=== PATIENT | female | born 2000 | race African-American/Black ===

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

== ENCOUNTER 2022-05-29 17:03 | Outpatient (CLI) | payer OTHER ==
[2022-05-29] MEDS ORDERED: LACTATED RINGERS 1,000 ML IV SCH (17:45)
[2022-05-29 19:31] VITALS: BP 116/84; PULSE 98; RESP 18; TEMP 96.8
--- NOTE | 2022-06-01 07:35 | P.MSEPDOC ---
Presenting Problems - Arrival Data Date of Arrival on Unit: 05/29/22 Time of Arrival on Unit: 17:03 Mode of Transport: Ambulatory - Complaint OB-Reason for Admission/Chief Complaint: Possible Onset of Labor Comment: contractions that got worse 1 hour ago Medical History - Information : 1 Para: 0 Term: 0 : 0 Abortions: Spontaneous or Elective: 0 Number of Living Children: 0 - Gestational Age Gestational Age by RATNA (wks/days): 35 Weeks and 3 Days Review of Systems - Review of Systems Constitutional: No problems Breast: No problems ENT: No problems Cardiovascular: No problems Respiratory: No problems Gastrointestinal: No problems Genitourinary: No problems Musculoskeletal: No problems Neurological: No problems Skin: No problems Vital Signs - Temperature Temperature: 96.8 F Temperature Source: Temporal Artery Scan - Pulse Right Pulse Oximetery Pulse Rate: 98 Pulse Assessment Method: Pulse Oximetry - Respirations Respiratory Rate: 18 Oxygen Delivery Method: Room Air O2 Sat by Pulse Oximetry: 99 - Blood Pressure Right Arm Blood Pressure: 116/84 Blood Pressure Mean: 94 Blood Pressure Source: Automatic Cuff Medical Screen Scoring - Cervical Exam Dilation (cm): 1 Effacement (%): 80 Station: -2 - Uterine Contractions Frequency From (mins): 2 Frequency To (mins): 7 Duration From (seconds): 50 Duration To (seconds): 60 Intensity: Moderate Resting: Soft to palpation - Assessment - Baby A Baseline FHR: 130 Heart Rate - NICHD Category: Category I (Normal) NST: Reactive Physician Notification - Physician Notified Physician Notified Date: 05/29/22 Physician Notified Time: 17:26 Physician: Barbara Meyers New Order Received: Yes Maternal Triage Index - Maternal Triage Index Presenting for scheduled procedure w/no complaint: No - Stat/Priority 1 Stat Priority 1: No - Urgent/Priority 2 Urgent Priority 2: No - Prompt/Priority 3 Prompt Priority 3: Yes Criteria Met for Priority 3: Pt arrives with c/o early labor signs 35 3/7 weeks gestation Disposition - Disposition OB Disposition: Discharge to home Discharge Date: 05/29/22 Discharge Time: 18:35 I agree with the RN Medical Screening Exam: Yes Case reviewed; plan agreed upon as documented in EMR&OBIX.: Yes Diagnosis: FALSE LABOR BEFORE 37 COMPLETED WEEKS OF GEST, THIRD TRI
== END 2022-05-29 18:35 | disposition home or self-care (01) ==
LOC: FBPOP 17:03
PROVIDERS: ATTEND Obstetrics & Gynecology
DX: O47.03 False labor before 37 completed weeks of gestation, third trimester (principal); Z3A.35 35 weeks gestation of pregnancy
CPT/HCPCS: 59025; 96365; G0463; 99213

== ENCOUNTER 2022-06-13 09:39 | Inpatient (IN) | payer OTHER ==
[2022-06-13] MEDS ORDERED: TERBUTALINE 1 MG/ML VIAL SQ PRN (10:09)
[2022-06-13] MEDS ORDERED: LIDOCAINE 0.5% (PF) 5 MG/ML (50 ML SDV) SQ PRN (10:09)
[2022-06-13] MEDS ORDERED: METHYLERGONOVINE 0.2 MG/ML 1 ML AMP IM PRN (10:09)
[2022-06-13] MEDS ORDERED: CARBOPROST TROMETHAMINE 250 MCG/ML 1 ML AMP IM PRN (10:09)
[2022-06-13] MEDS ORDERED: OXYTOCIN 10 UNIT/ML 1 ML VIAL IM PRN (10:09)
[2022-06-13] MEDS ORDERED: OXYTOCIN 30 UNITS/500 ML NS 30 UNIT in SALINE 1 500ML.BAG IV SCH ×2 (10:15→18:45)
[2022-06-13 10:45] LABS: Basophils % (A) 0 %; Eosinophils % (A) 1 %; HCT 36.1 % (34.0-46.0); HGB 11.7 gm/dL (11.4-16.0); Lymphocytes # (A) 1.1 k/uL (1.0-4.8); Lymphocytes % (A) 13 %; MCH 29.9 pg (25.0-35.0); MCHC 32.4 g/dL (31.0-37.0); MCV 92.6 fL (80.0-100.0); Mean Platelet Volume 9.3; Monocytes # (A) 0.4 k/uL (0-1.0); Monocytes % (A) 5 %; Neutrophils # (A) 6.6 k/uL (1.3-7.7); Neutrophils % (A) 80 %; Platelet Count 223 k/uL (150-450); WBC 8.2 k/uL (4.0-11.0)
[2022-06-13] MEDS: LACTATED RINGERS 1,000 ML IV SCH ×2 (10:49→11:16)
[2022-06-13 10:50] LABS: Amphetamine Screen,Urine Not Detected (NotDetected); Barbiturate Screen,Urine Not Detected (NotDetected); Benzodiazepines Screen,Urine Not Detected (NotDetected); Cocaine Screen,Urine Not Detected (NotDetected); Methadone Screen, Urine Not Detected (NotDetected); Opiate Screen,Urine Not Detected (NotDetected); Oxycodone Screen, Urine Not Detected (NotDetected); Phencyclidine Screen,Urine Not Detected (NotDetected); Tricyclic Antidepressant,Urine Not Detected (NotDetected); Urn Cannabinoid Scrn Detected (NotDetected)
--- NOTE | 2022-06-13 11:31 | P.HPOB ---
History of Present Illness H&P Date: 06/13/22 Chief Complaint: Leaking fluid and contractions This patient is a 22-year-old 1 para 0 female estimated date of confinement 06/30/2022 estimated gestational age 37-4/7 weeks who presents to labor and delivery with complaints of leaking of fluid apparently since 2 AM this morning and has been having contractions. care is per Dr. Meyers appears to be complicated by elevated AFP test. Patient was sent to maternal- medicine has had a negative evaluation and has had normal antepartum testing. Most recent ultrasound was done 2 weeks ago showed estimated weight 5 lbs. 13 oz. Patient's is also complicated by marijuana use. Review of Systems Genitourinary: Reports Menstruation: Reports amenorrhea Past Medical History Past Medical History: No Reported History Additional Past Medical History / Comment(s): Pilonidal cyst History of Any Multi-Drug Resistant Organisms: None Reported Past Surgical History: No Surgical Hx Reported Additional Past Surgical History / Comment(s): excision pilonidal cyst 11/06/18 Past Anesthesia/Blood Transfusion Reactions: No Reported Reaction Past Psychological History: No Psychological Hx Reported Smoking Status: Vaper Past Alcohol Use History: None Reported Past Drug Use History: Marijuana - Past Family History Mother Family Medical History: Asthma Additional Family Medical History / Comment(s): Bipolar, Schizophrenic Father History Unknown: Yes Medications and Allergies Home Medications Medication Instructions Recorded Confirmed Type Vit No.179/Iron/Folic 1 each PO DAILY 05/29/22 06/13/22 History [ Tablet] Allergies Allergy/AdvReac Type Severity Reaction Status Date / Time No Known Allergies Allergy Verified 06/13/22 10:03 Exam Vital Signs Temp Pulse Resp BP Pulse Ox 06/13/22 10:20 97.3 F L 109 H 18 110/73 99 Intake and Output 06/12/22 06/13/22 06/13/22 22:59 06:59 14:59 Other: Weight 83.007 kg - OBG Physical Exam Abdomen: bowel sounds normal, no diffuse tenderness, no bruit present, no guarding noted, no hepatomegaly, no splenomegaly, no mass Vulva: both: normal Vagina: normal moisture, no discharge Cervix: no lesion (Cervix per the RN is 3-4 cm dilated and completely effaced -1 station), no discharge Uterus: enlarged Results labs show she is B negative, rubella immune, RPR nonreactive, hepatitis B negative, HIV is nonreactive, Glucola was abnormal with a normal three-hour gtt., level III ultrasound was normal, group B strep was negative, Result Diagrams: 06/13/22 10:36 Abnormal Lab Results - Last 24 Hours (Table) 06/13/22 Range/Units 10:20 U Marijuana (THC) Screen Detected H (NotDetected) Assessment and Plan Assessment: This is a 22-year-old 1 para 0 female 37-5/7 weeks gestation with spontaneous rupture membranes at 2 AM this morning onset of labor. Plan is pain control and Pitocin augmentation of labor necessary. Toxicology screen is positive for marijuana therefore we will get a psychologist social consultation. At this point we anticipate vaginal delivery. (1) 37 weeks gestation of Current Visit: Yes Status: Acute Code(s): Z3A.37 - 37 WEEKS GESTATION OF SNOMED Code(s): 26545882 (2) Spontaneous rupture of amniotic membranes Current Visit: Yes Status: Acute Code(s): GTB5469 - SNOMED Code(s): 398265552 (3) Normal labor Current Visit: Yes Status: Acute Code(s): O80 - ENCOUNTER FOR FULL-TERM UNCOMPLICATED DELIVERY; Z37.9 - OUTCOME OF DELIVERY, UNSPECIFIED SNOMED Code(s): 88540146 (4) Substance abuse affecting in third trimester, antepartum Current Visit: Yes Status: Acute Code(s): O99.323 - DRUG USE COMPLICATING , THIRD TRIMESTER SNOMED Code(s): 11955728 (5) Rh negative state in antepartum period Current Visit: Yes Status: Acute Code(s): O26.899 - OTH RELATED CONDITIONS, UNSPECIFIED TRIMESTER; Z67.91 - UNSPECIFIED BLOOD TYPE, RH NEGATIVE SNOMED Code(s): 507360497 (6) Abnormal AFP screen Current Visit: Yes Status: Acute Code(s): O28.0 - ABNORMAL HEMATOLOG FINDING ON SCREENING OF MOTHER SNOMED Code(s): 641894716
[2022-06-13] MEDS ORDERED: diphenhydrAMINE 50 MG/ML 1 ML VIAL IVP PRN (18:36)
[2022-06-13] MEDS ORDERED: SIMETHICONE 80 MG CHEWABLE PO PRN (18:36)
[2022-06-13] MEDS ORDERED: HYDROCORTISONE 2.5% RECTAL CREAM 30 GM TUBE RECTAL PRN (18:36)
[2022-06-13] MEDS ORDERED: ZOLPIDEM 5 MG TAB PO PRN (18:36)
[2022-06-13] MEDS ORDERED: bisacodyL 10 MG SUPP RECTAL PRN (18:36)
[2022-06-13] MEDS ORDERED: diphenhydrAMINE 25 MG CAP PO PRN (18:36)
[2022-06-13] MEDS ORDERED: BENZOCAINE/MENTHOL SPRAY 1 GM/SPRAY AEROSOL TOPICAL PRN (18:36)
[2022-06-13] MEDS ORDERED: ACETAMINOPHEN TAB 325 MG TAB PO PRN (18:36)
[2022-06-13] MEDS ORDERED: LANOLIN CREAM 5 GM TUBE TOPICAL PRN (18:36)
[2022-06-13] MEDS ORDERED: Rhogam IMMUNE GLOBULIN 1,500 UNIT/1 ML IM ONE (18:45)
--- NOTE | 2022-06-13 18:45 | P.PROBDLV ---
Vaginal Delivery Note - . Vaginal Delivery Note: Normal vaginal delivery (vacuum assisted) viable male infant Apgars 8 and 9 delivery time is 1815 hrs. Please see dictated H&P for intimate details of this patient's admission. Brief summary this is a 22-year-old 1 para 0 female 37-4/7 weeks gestation admitted to labor and delivery earlier this morning with spontaneous rupture membranes that she states happened at 2 in the morning. Patient's found to be grossly ruptured and having irregular contractions. At this time she gets an epidural for pain control and Pitocin augmentation of labor. Patient's labor does progress fairly rapidly and she gets to complete. Patient pushed for approximately 1-1/2 hours with fairly poor effort. The epidural was discontinued to hopefully facilitate maternal effort. Patient gets the head to +2 station at this time she indicates she is exhausted and it appears that if she does not have an assisted delivery she will need to have a C- section. At this time, I discussed with the patient and family that the plan is to make an episiotomy and if she is unable to push past this and I will attempt vacuum delivery to facilitate delivery due to NO maternal effort. Patient is agreeable. Vacuum is placed. Infant's head is noted to be occiput anterior presentation. With one pull the infant's head is easily delivered over the perineum. Mouth and nares are bulb suctioned. There is no evidence of a nuchal cord. With gentle downward traction we then have delivery the anterior and posterior shoulder and rest this infant's body. This is a vigorous viable male Apgars are 8 and 9 delivery time is 1815 hrs. Infant is late on the mother's abdomen. After the umbilical cord is done pulsating is doubly clamped and cut. The placenta is then spontaneously delivered intact. Inspection of the perineum shows a second-degree laceration was repaired with 3-0 Vicryl in the usual fashion. Excellent reapproximation is noted. All counts are correct 3. There are no complications. Infant and mother are stable delivery room.
[2022-06-13] MEDS: IBUPROFEN 600 MG TAB PO PRN (19:21)
[2022-06-13] MEDS: SENNOSIDES-DOCUSATE SODIUM 1 EACH TAB PO SCH (22:32)
[2022-06-14] MEDS ORDERED: ROPIVACAINE 100 MG, fentaNYL (PF). 200 MCG in SODIUM CHLORIDE 0.9% 76 ML EPIDURAL ONE (06:12)
[2022-06-14 06:48] LABS: Basophils % (A) 0 %; Eosinophils % (A) 0 %; HCT 29.3 % (34.0-46.0); Lymphocytes # (A) 1.5 k/uL (1.0-4.8); Lymphocytes % (A) 10 %; MCH 30.2 pg (25.0-35.0); MCHC 32.8 g/dL (31.0-37.0); Monocytes # (A) 0.8 k/uL (0-1.0); Monocytes % (A) 5 %; Neutrophils # (A) 12.5 k/uL (1.3-7.7); Neutrophils % (A) 83 %; Platelet Count 207 k/uL (150-450); RBC 3.18 m/uL (3.80-5.40); RDW 12.8 % (11.5-15.5)
[2022-06-14 07:00] LABS: HGB 9.6 gm/dL (11.4-16.0)
[2022-06-14] MEDS: SENNOSIDES-DOCUSATE SODIUM 1 EACH TAB PO SCH ×2 (07:54→20:25)
--- NOTE | 2022-06-14 08:23 | P.DS ---
Providers Date of admission: 06/13/22 10:02 Expected date of discharge: 06/14/22 Attending physician: Barbara Meyers Primary care physician: Stated None - Discharge Diagnosis(es) (1) Vacuum-assisted vaginal delivery Current Visit: Yes Status: Acute Hospital Course: Patient presented in labor. She underwent a vacuum-assisted vaginal delivery. course was uncomfortable. She denies nausea, vomiting, chest pain, stress of breath or calf pain. Patient will be discharged home day #1 in stable condition to follow-up with me in 6 weeks. Plan - Discharge Summary New Discharge Prescriptions: New Ibuprofen [Motrin] 600 mg PO Q6HR PRN #30 tab PRN Reason: Mild Pain (Scale 1 To 3) No Action Vit No.179/Iron/Folic [ Tablet] 1 each PO DAILY Discharge Medication List Vit No.179/Iron/Folic [ Tablet] 1 each PO DAILY 05/29/22 [History] Ibuprofen [Motrin] 600 mg PO Q6HR PRN #30 tab 06/14/22 [Rx] Follow up Appointment(s)/Referral(s): Barbara Meyers DO [Doctor of Osteopathic Medicine] - 6 Weeks Discharge Disposition: HOME SELF-CARE
[2022-06-14] MEDS: IBUPROFEN 600 MG TAB PO PRN (20:25)
[2022-06-15 05:58] VITALS: RESP 16
[2022-06-15 08:05] VITALS: BP 133/77; PULSE 70; TEMP 98.3
[2022-06-15] MEDS: SENNOSIDES-DOCUSATE SODIUM 1 EACH TAB PO SCH (08:07)
== END 2022-06-15 15:15 | disposition home or self-care (01) | DRG 806 ==
LOC: FBPOP 09:39 → 4FBP 10:02
PROVIDERS: ADMIT Obstetrics & Gynecology; ATTEND Obstetrics & Gynecology
PROC: 10D07Z6 Extraction of Products of Conception, Vacuum, Via Natural or Artificial Opening (ICD-10-PCS; principal; 2022-06-13)
PROC: 0KQM0ZZ Repair Perineum Muscle, Open Approach (ICD-10-PCS; 2022-06-13)
PROC: 3E033VJ Introduction of Other Hormone into Peripheral Vein, Percutaneous Approach (ICD-10-PCS; 2022-06-13)
PROC: 4A0HXCZ Measurement of Products of Conception, Cardiac Rate, External Approach (ICD-10-PCS; 2022-06-13)
DX: O42.92 Full-term premature rupture of membranes, unspecified as to length of time between rupture and onset of labor (principal); O99.324 Drug use complicating childbirth; Z37.0 Single live birth; O70.1 Second degree perineal laceration during delivery; O26.893 Other specified pregnancy related conditions, third trimester; F12.90 Cannabis use, unspecified, uncomplicated; Z3A.37 37 weeks gestation of pregnancy; Z67.91 Unspecified blood type, Rh negative
CPT/HCPCS: 59025; 80306; 84112; 85025; 86850; 86870; 86880; 86900; 86901; 86902; 88307; 99213

== ENCOUNTER 2024-05-20 02:51 | Emergency (ER) | payer OTHER ==
[2024-05-20 02:56] VITALS: TEMP 98.2
[2024-05-20 04:06] LABS: Appearance,Urine Cloudy (Clear); Bacteria,Urine Occasional /hpf; Bilirubin,Urine Negative (Negative); Blood,Urine Negative (Negative); Color,Urine Yellow; Glucose,Urine (UA) Negative (Negative); Hyaline Casts,Urine 11 /lpf (0-2); Ketones,Urine Negative (Negative); Leukocyte Esterase,Urine Small (Negative); Mucus,Urine Occasional /hpf; Nitrite,Urine Negative (Negative); Protein,Urine 1+ (Negative); RBC,Urine 3 /hpf (0-5); Specific Gravity,Urine 1.028 (1.001-1.035); Squamous Epithelial Cell,Urine 8 /hpf (0-4); Urobilinogen,Urine <2.0 mg/dL (<2.0); WBC,Urine 7 /hpf (0-5)
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
[2024-05-20 05:37] VITALS: BP 114/58; PULSE 88; RESP 16
== END 2024-05-20 05:40 | disposition home or self-care (01) ==
LOC: EC 02:51
DX: M25.511 Pain in right shoulder (principal); F17.290 Nicotine dependence, other tobacco product, uncomplicated; Y04.8XXA Assault by other bodily force, initial encounter
CPT/HCPCS: 70450; 72125; 81001; 81025; 99284